=== PATIENT | male | born 1995 | race Caucasian/White ===

== ENCOUNTER 2020-03-09 22:18 | Emergency (ER) | payer SELFPAY ==
[~2020-03-09] VITALS: Ht 185.4 cm; Wt 68.0 kg
[2020-03-09 22:23] VITALS: Ht 185.4 cm; Wt 68.0 kg
[2020-03-10 03:33] LABS: BASOPHIL % 0.3 % (0-2); RED CELL DISTRIBUTION WIDTH 12.6 % (11.5-14.5)
[2020-03-10 03:35] LABS: PLATELET COUNT 423 x10^3mcL (130-400)
[2020-03-10 04:00] LABS: CALCIUM 9.4 mg/dL (8.5-10.1); CARBON DIOXIDE 25.7 mmol/L (21-32); CHLORIDE SERUM 107 mmol/L (98-107); GFR1 > 60 mL/min; GLUCOSE SERUM 100 mg/dL (74-106); POTASSIUM SERUM 3.8 mmol/L (3.5-5.1); SODIUM SERUM 143 mmol/L (136-145)
[2020-03-10 04:04] LABS: ALBUMIN 4.4 g/dL (3.4-5.0); ALKALINE PHOSPHATASE 61 U/L (46-116); ALT/SGPT 26 U/L (16-63); AST/SGOT 33 U/L (15-37); BILIRUBIN TOTAL 0.64 mg/dL (0.20-1.00); TOTAL PROTEIN, SERUM 7.1 g/dL (6.4-8.2)
[2020-03-10 04:11] LABS: AMPHETAMINE QUAL UR POSITIVE (See below)
[2020-03-10 12:18] VITALS: BP 129/90
== END 2020-03-10 12:18 | disposition home or self-care (01) ==
LOC: ED 22:18
PROVIDERS: Specialist
DX: G93.41 Metabolic encephalopathy (principal); R41.0 Disorientation, unspecified; F19.10 Other psychoactive substance abuse, uncomplicated
CPT/HCPCS: 36415; G0480; J0515; J1630; J2060